=== PATIENT | male | born 1985 | race Caucasian/White ===

== ENCOUNTER → 2021-08-01 14:22 | Outpatient (BNVA) | payer OTHER, SELFPAY | PROVIDERS: PCP Family Medicine; Visit Provider Urology ==

== ENCOUNTER → 2022-02-01 14:19 | Outpatient (BNVA) | payer OTHER, SELFPAY | PROVIDERS: PCP Family Medicine; Visit Provider Urology | DX: Z13.89 Encounter for screening for other disorder (principal) | CPT/HCPCS: 55250 ==

== ENCOUNTER 2022-03-02 | Outpatient (REF) | payer OTHER, SELFPAY ==
[2022-03-02 11:26] LABS: Amphetamine Screen Urine Not Detected (Not Detect); Barbiturates, Urine Not Detected (Not Detect); Benzodiazepines Screen Urine Not Detected (Not Detect); Cannabinoid Screen Urine Not Detected (Not Detect); Cocaine Screen Urine Not Detected (Not Detect); Fentanyl, urine Not Detected (Not Detect); Opiate Screen Urine Not Detected (Not Detect); Phencyclidine Screen Urine Not Detected (Not Detect)
== END 2022-03-02 00:01 | disposition home or self-care (01) ==
LOC: HO.PHPLNP
PROVIDERS: Visit Provider Social Worker
DX: F10.20 Alcohol dependence, uncomplicated (principal)
CPT/HCPCS: 80307

== ENCOUNTER 2022-03-26 12:30 | Outpatient (RCR) | payer OTHER, SELFPAY ==
--- NOTE | 2022-03-01 10:50 | P.HPPSP_ITS ---
HPI Date of Service: 03/01/22 Chief Complaint: anxiety,depression Sources of Information: patient interviewed, chart reviewed and crisis/core team assessment reviewed HPI Narrative: Mr. Georges is a 36 year-old male with hx of MDD, alcohol use disorder who was referred by his PCP due to increase depression, low energy, poor sleep, hopeless. No SI/HI. Mr. Georges reports hx of using alcohol for more than 20 years almost daily. He reports hx of depression since he was in high school. He reports brief psychiatric treatment as a child for mostly attention deficit. He reports drinking almost daily for the past 20 years. 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 He reports poor sleep related to alcohol use. He reports most recently feeling very anxious, easily startle. He reports his has said to him that he seems more anxious and having panic attacks. He reports feeling slow physically and mentally. He reports trying to stop using alcohol for few weeks. He denies any withdrawal symptoms. He denies suicidal or homicidal ideation. However, he reports he finds very little amy in his life. When asked about his alcohol use and its impact on relationships, pt seems to minimize effects of alcohol use. He denies hx of visual or auditory hallucinations. He also denies s/s of hypomania or jyoti. Past Psychiatric History: Inpt: none OP: none Past trials: ritalin as child Medical Evaluation Reviewed: Yes [facility] Surgical History (Updated 03/02/22 @ 10:44 by Janie Clement RN) H/O vasectomy Meds/Allergies Meds Home Medications Medication Instructions Recorded Confirmed Type clonidine HCl 0.1 mg tablet 0.1 mg PO BID 03/02/22 03/02/22 History Allergies Allergies Allergy/AdvReac Type Severity Reaction Status Date / Time prunes Allergy Nausea and Verified 03/02/22 14:13 Vomiting Mental Status Exam Mental Status Exam Narrative: Appearance: MO, casually groomed, good hygiene in NAD Behavior:cooperative psychomotor: no agitation or retardation noted Speech:clear, normal rate/rhythm/volume, spontaneous Thought process:linear Thought content:no signs of psychosis or delusions, feeling hopeless, anhedonic Mood: anxious Affect: congruent SI:none HI:none VH/AH:none Delusions:none Insight/judgment:fair x 2. Memory/cog: alert, oriented x 3. grossly intact to conversational testing but not formally tested. Assessment & Plan Assessment & Plan (1) MDD (major depressive disorder), recurrent episode, moderate: Status: Acute Code(s): F33.1 - Major depressive disorder, recurrent, moderate (2) Alcohol use disorder, moderate, dependence: Status: Acute Code(s): F10.20 - Alcohol dependence, uncomplicated Plan Mr. Georges is a 36 year-old male with hx of depression, alcohol use who was referred by his PCP due to increase symptoms of anxiety, depressed mood, anhedonia, hopelessness. No SI/HI. Pt reports hx of alcohol use daily for 20 years. He reports he has not used in past 2 weeks, denies hx of alcohol withdrawal. We discussed risks, benefits and alternative treatment options. We discussed starting antidepressant but Mr. Georges ambivalent about it. We also discussed medications to decrease alcohol use/craving including naltrexon, campral or antibuse. Pt will like to wait before starting any medications. Patient educated on: diagnosis, medication risk/benefits and substance abuse Informed Consent: understands Reason for continued partial hosp. stay Substantial Risk for: inability to function Certification I certify that partial hospital treatment is medically necessary due to the symptoms and problems resulting from the patient's mental illness and the failure to treat the patient at the partial hospital level of care would likely result in the patient requiring inpatient psychiatric care which could not be prevented at a less intensive level of care.
--- NOTE | 2022-03-01 15:55 | PC.NURSE ---
Case was opened in treatment team.
[2022-03-02 10:49] VITALS: BMI 50.8
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
[2022-03-02 14:08] VITALS: BP 120/76; PULSE 72; TEMP 35.8
--- NOTE | 2022-03-06 14:52 | PC.NURSE ---
I met with Edgar to review treatment plan. We discussed schedule and aftercare plans. After discussing options, I agreed to refer pt to [facility] for individual therapy and medication management. Pt's mood was dysthymic and he used defensive humor at times. He reported a sense of hopelessness but no SI. He reported benefitting a great deal from the support of the group and from learning coping tools. Pt reported he has been abstinent from ETOH so far, and having some cravings. We discussed options for 12 step meetings, and for [facility] meetings, both of which he reported ambivalence about. We set at tentative discharge date for 03/15/22.
--- NOTE | 2022-03-09 09:59 | HO.PHPPROGNO ---
Subjective Subjective Date of Service: 03/08/22 Reason For Visit: anxiety,depression Interim History: Patient reports that he started Effexor 2 days ago. No side effects to report at this time. Lab work completed with PCP, reports liver enzymes elevated-results to be faxed to [facility]. Discussed role alcohol may be playing in affecting health. Patient minimizing alcohol use, but reflecting some on how alcohol does impact some areas of his life. Review of Systems Constitutional: Reports as per HPI Mental Status Exam Mental Status Exam Narrative: Appearance: MO, casually groomed, good hygiene in NAD Behavior:cooperative psychomotor: no agitation or retardation noted Speech:clear, normal rate/rhythm/volume, spontaneous Thought process:linear Thought content:no signs of psychosis or delusions, anhedonia Mood: anxious Affect: congruent SI:none HI:none VH/AH:none Delusions:none Insight/judgment:fair x 2. Memory/cog: alert, oriented x 3. grossly intact to conversational testing but not formally tested. Diagnostics Vital Signs (24Hr): BMI result Body Mass Index 50.8 Assessment & Plan Assessment & Plan (1) MDD (major depressive disorder), recurrent episode, moderate: Status: Acute Code(s): F33.1 - Major depressive disorder, recurrent, moderate Assessment and Plan: continue effexor at current dose follow up as needed (2) Alcohol use disorder, moderate, dependence: Status: Acute Code(s): F10.20 - Alcohol dependence, uncomplicated Assessment and Plan: risk reduction discussion Certification I certify that partial hospital treatment is medically necessary due to the symptoms and problems resulting from the patient's mental illness and the failure to treat the patient at the partial hospital level of care would likely result in the patient requiring inpatient psychiatric care which could not be prevented at a less intensive level of care. I spent minutes with the patient and/or on the patient floor today, greater than?50% of which was spent counseling/coordinating care. Discharge Plan Discharge Attending provider: Neo Ross Medications: No Action clonidine HCl 0.1 mg Tablet 0.1 mg PO BID venlafaxine [Effexor] 37.5 mg Tablet 37.5 mg PO DAILY Label Comments: Patient reports his prescriber Lawrence Mulligan added the above medication per Medication Update Form. 03/03/22
--- NOTE | 2022-03-15 13:09 | P.PNPSP_ITS ---
Subjective Subjective Date of Service: 03/15/22 Reason For Visit: anxiety,depression Medical Problems Affecting Mental Status: No Interim History: Taking clonidine, Effexor. Reports he missed them on Saturday, for got. Taking them consistently otherwise. Continues with dysphoric, anxious mood and affect. No SI. Today is patient's birthday, he states that he struggles on his birthday. Reports told him he had dissociative episode over weekend. Medication Compliance: Yes (Except for 1 day.) Side effects from medications: No Attending Groups: Yes Review of Systems Acute medical concerns: No Medical Review of Systems: unchanged Review of Systems Review of Systems Yes all other systems are reviewed and are negative Constitutional: Reports no additional constitutional complaints Mental Status Exam Mental Status Exam Patient Appearance: Appropriate Patient Orientation: Person, Place, Time and Situation Level of Consciousness: Appropriate Patient Behavior: Appropriate and Cooperative Mood Description: Depressed and Anxious Affect Description: Depressed and Anxious Patient Cognition Impaired: No Ability to Follow Directions: Good Speech Pattern: Clear, Appropriate and Coherent Memory Description: Intact Hallucinations: None Delusions: Not Present Perceptual Disturbances: Depersonalization (Reports episodes of dissociation) Thought Process: Intact Thought Content: positive for Intact Depressive Symptoms: Increased Anxiety, Difficulty Sleeping, Low Self Esteem and Difficulty Concentrating Judgement: Fair Diagnostics Vital Signs (24Hr): BMI result Body Mass Index 50.8 Assessment & Plan Assessment & Plan (1) MDD (major depressive disorder), recurrent episode, moderate: Status: Acute Code(s): F33.1 - Major depressive disorder, recurrent, moderate Assessment and Plan: Patient reports not yet noticing affect with Effexor. Discussed medication in detail, including risks and benefits, efficacy, etc.. Discussed increasing dose to 75 mg daily. He was in agreement with this. Patient states that he had a brother that had bipolar disorder, although this patient denies any symptoms of bipolar disorder in his past or present. He states that he took Ritalin as a child from ages [age], stopped taking it due to headaches and nightmares. He believes that he does have some type of difficulties with concentration. States that he also believes it could be related to dissociating at times. No SI/HI, no safety concerns. He states that he has a hard time on his birthday, which is today. Denies any SI at this time, but states that he has had SI in the past on his birthday. Denies any intent or plan to harm himself or others at this time. (2) Anxiety about health: Status: Acute Code(s): F41.8 - Other specified anxiety disorders (3) Alcohol use disorder, moderate, dependence: Status: Acute Code(s): F10.20 - Alcohol dependence, uncomplicated Assessment and Plan: Drink over weekend. States that he consumed less than normal amount, as he was not finding it satisfying. Plan 1. Continue with current [facility] plan of care. 2. Increase Effexor to 75 mg daily. 3. Follow-up as per protocol. Patient educated on: diagnosis, medication risk/benefits, substance abuse and therapeutic strategies Informed Consent: understands Reason for contiued partial hosp. stay Substantial Risk for: harm to self, inability to function and med/psych decompe nsation Certification I certify that partial hospital treatment is medically necessary due to the symptoms and problems resulting from the patient's mental illness and the failure to treat the patient at the partial hospital level of care would likely result in the patient requiring inpatient psychiatric care which could not be prevented at a less intensive level of care. I spent minutes with the patient and/or on the patient floor today, greater than?50% of which was spent counseling/coordinating care. Discharge Plan Discharge Attending provider: Neo Ross Additional Instructions: In-person assessment for individual therapy with therapist Tawanna Mayo at [facility], [address] [place] [address] on 03/20/22 at 10:30am (one hour appointment). Telehealth Psychiatric Evaluation for medication management with med provider Afshan Moran from [facility] on 04/03/22 at 2pm (one hour appointment). Telehealth follow-up appointment for medication management with med provider Afshan Moran from [facility] on 05/04/22 at 12:20pm (20 minute appointment). Medications: No Action clonidine HCl 0.1 mg Tablet 0.1 mg PO BID venlafaxine [Effexor] 37.5 mg Tablet 75 mg PO DAILY Label Comments: Patient reports his prescriber Lawrence Mulligan added the above medication per Medication Update Form. 03/03/22. Medication increased to 75 mg daily 03/15/22. Stand Alone Forms: Patient Portal Discharge page Patient Education: Depression (DC), Abuse of Alcohol (DC)
--- NOTE | 2022-03-22 12:49 | P.PNPSP_ITS ---
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 Some anxiety. No SI, no safety concerns. Feels current Effexor does is beginning to help lift mood, slowly. Finding PHP groups helpful. Medication Compliance: Yes Side effects from medications: Yes (Slight sexual side effects from Effexor.) Attending Groups: Yes Review of Systems Acute medical concerns: No Medical Review of Systems: unchanged Review of Systems Review of Systems Yes all other systems are reviewed and are negative Constitutional: Reports no additional constitutional complaints Mental Status Exam Mental Status Exam Narrative: NAD. No abnormal movements. Patient Appearance: Appropriate Patient Orientation: Person, Place, Time and Situation Level of Consciousness: Appropriate Patient Behavior: Appropriate and Cooperative Mood Description: Depressed (Reports 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) and Anxious Affect Description: Appropriate Patient Cognition Impaired: No Ability to Follow Directions: Excellent Speech Pattern: Clear, Appropriate and Coherent Memory Description: Intact Hallucinations: None Delusions: Not Present Thought Process: Intact Thought Content: positive for Intact Depressive Symptoms: Increased Anxiety and Low Self Esteem Judgement: Fair Diagnostics Vital Signs (24Hr): BMI result Body Mass Index 50.8 Assessment & Plan Assessment & Plan (1) MDD (major depressive disorder), recurrent episode, moderate: Status: Acute Code(s): F33.1 - Major depressive disorder, recurrent, moderate Assessment and Plan: 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 Some anxiety. No SI, no safety concerns. Feels current Effexor does is beginning to help lift mood, slowly. We discussed keeping medication regimen as it is at this time, as he is beginning to have some positive affect. He did state he has some slight sexual side effects, but that it is not bothersome at this time. He is scheduled to meet with a psychiatric provider in early March. He states that he will discuss any possible medication changes or adding Viagra etc. at that time with his new provider. Finding PHP groups helpful. Has decided he wants a new career, not sure which direction he will go in at this time. (2) Alcohol use disorder, moderate, dependence: Status: Acute Code(s): F10.20 - Alcohol dependence, uncomplicated Assessment and Plan: Did not report any concerns regarding alcohol use during this encounter. Plan 1. Continue with current [facility] plan of care. 2. Continue with current medication regimen as prescribed. 3. Follow-up as per protocol. Patient educated on: diagnosis, medication risk/benefits and therapeutic strategies Reason for contiued partial hosp. stay Substantial Risk for: inability to function Certification I certify that partial hospital treatment is medically necessary due to the symptoms and problems resulting from the patient's mental illness and the failure to treat the patient at the partial hospital level of care would likely result in the patient requiring inpatient psychiatric care which could not be prevented at a less intensive level of care. I spent minutes with the patient and/or on the patient floor today, greater than?50% of which was spent counseling/coordinating care. Discharge Plan Discharge Attending provider: Neo Ross Additional Instructions: In-person assessment for individual therapy with therapist Tawanna Mayo at [facility], [address] [place] [address] on 03/20/22 at 10:30am (one hour appointment). Telehealth Psychiatric Evaluation for medication management with med provider Afshan Moran from [facility] on 04/03/22 at 2pm (one hour appointment). Telehealth follow-up appointment for medication management with med provider Afshan Moran from [facility] on 05/04/22 at 12:20pm (20 minute appointment). Medications: No Action clonidine HCl 0.1 mg Tablet 0.1 mg PO BID venlafaxine [Effexor] 37.5 mg Tablet 75 mg PO DAILY Label Comments: Patient reports his prescriber Lawrence Mulligan added the above medication per Medication Update Form. 03/03/22. Medication increased to 75 mg daily 03/15/22. Stand Alone Forms: Patient Portal Discharge page Patient Education: Depression (DC), Abuse of Alcohol (DC)
--- NOTE | 2022-03-26 14:28 | P.PNPSP_ITS ---
Subjective Subjective Date of Service: 03/26/22 Reason For Visit: anxiety,depression Medical Problems Affecting Mental Status: No Interim History: Reports his mother in [place] on Saturday. Feeling overwhelmed with making arrangements, etc.. Reports he drank heavily this weekend. No SI, no safety concern at this time. Not interested in medication/dose change. Medication Compliance: Yes Side effects from medications: No Attending Groups: Yes Review of Systems Acute medical concerns: No Medical Review of Systems: unchanged Review of Systems Review of Systems Yes all other systems are reviewed and are negative Constitutional: Reports no additional constitutional complaints Mental Status Exam Mental Status Exam Narrative: NAD Patient Appearance: Appropriate Patient Orientation: Person, Place, Time and Situation Level of Consciousness: Appropriate Patient Behavior: Appropriate, Cooperative, Good Eye Contact and Crying (Tearful during encounter.) Mood Description: Depressed and Anxious Affect Description: Depressed and Anxious Patient Cognition Impaired: No Ability to Follow Directions: Good Speech Pattern: Clear, Appropriate, Coherent and Soft-Spoken Memory Description: Intact Hallucinations: None Delusions: Not Present Thought Process: Intact Thought Content: positive for Intact Depressive Symptoms: Increased Anxiety, Loss of Int. in Activity, Unhappiness, Increased Fatigue and Difficulty Concentrating Judgement: Good Diagnostics Vital Signs (24Hr): BMI result Body Mass Index 50.8 Assessment & Plan Assessment & Plan (1) MDD (major depressive disorder), recurrent episode, moderate: Status: Acute Code(s): F33.1 - Major depressive disorder, recurrent, moderate Assessment and Plan: Reports his mother in [place] on Saturday. Reports feeling numb, processing the loss. Has a brother that is diagnosed with bipolar disorder, patient mostly responsible for making arrangements. Feeling overwhelmed with making arrangements, etc.. Reports he drank heavily this weekend. Continues with conflicts with spouse. No SI, no safety concern at this time. Not interested in medication/dose change. (2) Alcohol use disorder, moderate, dependence: Status: Acute Code(s): F10.20 - Alcohol dependence, uncomplicated Plan 1. Patient to continue current medication doses at this time. 2. Patient to consider appointment at [facility] for treatment of alcohol use. 3. Patient to follow-up with outpatient providers going forward. Patient educated on: diagnosis, medication risk/benefits, substance abuse and therapeutic strategies Informed Consent: understands Reason for contiued partial hosp. stay Substantial Risk for: stable for discharge Certification I certify that partial hospital treatment is medically necessary due to the symptoms and problems resulting from the patient's mental illness and the failure to treat the patient at the partial hospital level of care would likely result in the patient requiring inpatient psychiatric care which could not be prevented at a less intensive level of care. I spent minutes with the patient and/or on the patient floor today, greater than?50% of which was spent counseling/coordinating care. Discharge Plan Discharge Attending provider: Neo Ross Additional Instructions: In-person individual therapy appointment with therapist Tawanna Mayo at [facility], [address] [place] [address] on 03/27/22 at 10:30am (one hour appointment). Telehealth Psychiatric Evaluation for medication management with med provider Afshan Moran from [facility] on 04/03/22 at 2pm (one hour appointment). Telehealth follow-up appointment for medication management with med provider Afshan Moran from [facility] on 05/04/22 at 12:20pm (20 minute appointment). Medications: No Action clonidine HCl 0.1 mg Tablet 0.1 mg PO BID venlafaxine [Effexor] 37.5 mg Tablet 75 mg PO DAILY Label Comments: Patient reports his prescriber Lawrence Mulligan added the above medication per Medication Update Form. 03/03/22. Medication increased to 75 mg daily 03/15/22. Stand Alone Forms: Patient Portal Discharge page Patient Education: Depression (DC), Abuse of Alcohol (DC)
== END 2022-03-26 23:59 | disposition home or self-care (01) ==
LOC: HO.PHPA 12:30
PROVIDERS: Visit Provider Psychiatry & Neurology Psychiatry
DX: F33.1 Major depressive disorder, recurrent, moderate (principal); F10.20 Alcohol dependence, uncomplicated
CPT/HCPCS: 90791; 90853

== ENCOUNTER → 2022-09-12 15:17 | Outpatient (BNVA) | payer OTHER, SELFPAY | PROVIDERS: PCP Family Medicine; Visit Provider Urology | DX: Z13.89 Encounter for screening for other disorder (principal) ==

== ENCOUNTER → 2022-12-14 10:45 | Outpatient (BNVA) | payer OTHER, SELFPAY | PROVIDERS: PCP Family Medicine; Visit Provider Urology ==

== ENCOUNTER → 2023-06-14 09:00 | Outpatient (BNV) | payer OTHER, SELFPAY | PROVIDERS: Visit Provider Psychiatry & Neurology Psychiatry | DX: F33.1 Major depressive disorder, recurrent, moderate (principal); F10.20 Alcohol dependence, uncomplicated | CPT/HCPCS: 90792; 99213 ==

== ENCOUNTER 2023-06-26 09:15 | Outpatient (RCR) | payer OTHER, SELFPAY ==
[2023-06-11 11:42] VITALS: BP 128/90; PULSE 68; TEMP 36.6
[2023-06-11 11:44] VITALS: BMI 48.1
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
--- NOTE | 2023-06-13 14:19 | HO.PHP ---
The client's case was reviewed and opened in treatment team.
--- NOTE | 2023-06-14 16:27 | HO.PHPPROGNO ---
Subjective Subjective Date of Service: 06/14/23 Reason For Visit: anxiety,depression Interim History: Patient seen for follow-up today by request, wanting to discuss alcohol use with his new medication. He reports anticipating a difficult weekend with spreading his mother's ashes over his father's graveplot. She says this was his mother's wishes but has delayed doing this as he was having trouble letting go . He feels this weekend the weather will be warmer and it just seems like the right time to do it. Upon inquiry about SI, he responds with jest I can neither confirm nor deny . When asked specifically about previous mentioned plan (20 yrs in the future), he endorses this is still his thought. He indicatesplan to use alcohol this weekend for anticipatory anxiety. We discuss option of utilizing a PRN for anxiety in lieu of alcohol, becuase there is less risk for overusing a medication which he needs to take as indicated, whereas there is no limit to the amount of alcohol he could access. He is open to the option of hydroxyzine. He was also encouraged to increase the ZOloft to one tablet (as he has been tolerating 1/2 tablet after an initial headache which has since resolved. Mental Status Exam Mental Status Exam Narrative: Alert, oriented, in no acute distress. Casually dressed.? Normal gait, no tics/tremors/dyskinesia, no psychomotor agitation or neurovegetative retardation. Calm, cooperative, forthcoming. Oddly related, disinhibited manner, gives provocative responses.? Variable eye contact. Mood is depressed. Affect constricted, anxious.? Speech is normal rate, low volume, low prosody. No latency or pressured speech. Thought process is linear, coherent without illogicality or FOI/OPHELIA. Thought content relevant to stressors, continues to endorse suicidal plan for 20 yrs in the future, but denies any thoughts of harming self or others presently. No gross evidence of psychosis. Cognition grossly intact. Sensorium clear. Insight fair but adequate. Judgment fair. Diagnostics Vital Signs (24Hr): BMI result Body Mass Index 48.1 Assessment & Plan Assessment & Plan (1) MDD (major depressive disorder), recurrent episode, moderate: Status: Acute Code(s): F33.1 - Major depressive disorder, recurrent, moderate (2) Alcohol use disorder, moderate, dependence: Status: Acute Code(s): F10.20 - Alcohol dependence, uncomplicated Plan Will start hydroxyzine 25 - 50 mg BID prn anxiety (may take an additional 25 mg dose for effect) continue with other regular medications Patient educated on: diagnosis, medication risk/benefits and substance abuse Informed Consent: understands Reason for contiued partial hosp. stay Substantial Risk for: harm to self, inability to function, rapid decompensation and med/psych decompensation Certification I certify that partial hospital treatment is medically necessary due to the symptoms and problems resulting from the patient's mental illness and the failure to treat the patient at the partial hospital level of care would likely result in the patient requiring inpatient psychiatric care which could not be prevented at a less intensive level of care. Total time managing care of this patient today 30____ minutes. Discharge Plan Discharge Attending provider: Margaret Vu Additional Instructions: Edgar has a scheduled appointment with his OP therapist, Diomedes Hughes on June 27, 2023 at 5 PM. Edgar has a scheduled appointment with his med provider, Trenton grimes [facility] on June 21, 2023 at 4:30 PM. Medications: New sertraline 50 mg tablet 50 mg PO DAILY Qty: 20 0RF Rx Instructions: take 1/2 tablet po daily for 6 days, then increase to one po tablet daily clonidine HCl 0.1 mg tablet 0.1 mg PO BID PRN (Reason: anxiety, sleep) Qty: 20 0RF hydroxyzine HCl 25 mg tablet 25 - 50 mg PO BID PRN (Reason: anxiety) Qty: 30 0RF Stand Alone Forms: Patient Portal Discharge page
[2023-06-21 10:44] VITALS: BP 136/91; PULSE 51
--- NOTE | 2023-06-21 21:56 | P.PNPSP_ITS ---
Subjective Subjective Date of Service: 06/21/23 Reason For Visit: anxiety,depression Interim History: Patient see for follow-up today. No acute issues or concerns Mood is still depressed, he is taking sertraline regularly at 50 mg daily. He has still not started on the hydroxyzine as he just picked it up today, but agrees to start on it for the anxiety, as he still is having thought of using alcohol to ease his stress. He asks generally about Bipolar disorder, anx wanders if he has this. He described his mood as up and down (feeling varying levels of depression, rather than alternate mood states. He reports some intrusive thoughts he does not want to share, but denies they are dangerous he also says he has impulses at times to say things, and is known to blurt out his thoughts impulsively, but says he tries to maintain a filter, epsecially when he was at work, because he was prone to putting his foot in his mouth . Many of the symptoms he describes sound related to temperment vs ADHD. He was encouraged to try to addressing some of these socialization issues in groups. He reports sleep is fair, appetite energy intact. Denies any hopelessness or SI or aggressive ideation at this time. We discuss movign up dose on the sertraline. He denies noticing any adverse e ffects. He is noted to have a history of erectile dysfunction. We discussed possibility of adding Wellbutrin on at some point to help w ADHD issues but also with potential ED on SSRIs, however his BP runs high (today 136/91). I suggest he makes an appointment with his PCP as he may need treatment for his HTN. He is taking clonidine but his HR is 51 this AM and was making him feel a little strange . Will continue to monitor. Medication Compliance: Yes Side effects from medications: No Attending Groups: Yes Review of Systems Acute medical concerns: No Mental Status Exam Mental Status Exam Narrative: Alert, oriented, in no acute distress. Casually dressed.? Normal gait, no tics/tremors/dyskinesia, no psychomotor agitation or neurovegetative retardation. Calm, cooperative, forthcoming. Oddly related, disinhibited manner, gives provocative responses.? Variable eye contact. Mood is depressed. Affect constricted, anxious.? Speech is normal rate, low volume, low prosody. No latency or pressured speech. Thought process is linear, coherent without illogicality or FOI/OPHELIA. Thought content relevant to stressors, continues to endorse suicidal plan for 20 yrs in the future, but denies any thoughts of harming self or others presently. No gross evidence of psychosis. Cognition grossly intact. Sensorium clear. Insight fair but adequate. Judgment fair. Diagnostics Vital Signs (24Hr): Vital Signs - 24 hr 06/21/23 10:44 Pulse Rate 51 Blood Pressure 136/91 H BMI result Body Mass Index 48.1 Assessment & Plan Assessment & Plan (1) MDD (major depressive disorder), recurrent episode, moderate: Status: Acute Code(s): F33.1 - Major depressive disorder, recurrent, moderate (2) Alcohol use disorder, moderate, dependence: Status: Acute Code(s): F10.20 - Alcohol dependence, uncomplicated Plan increase sertraline to 75 mg/day (will likely continue titration to 100 mg/d as tolerated) encouraged to start on hydroxyzine 25-75 mg PRN anxiety continue other medications Patient educated on: diagnosis, medication risk/benefits and substance abuse Informed Consent: understands Reason for contiued partial hosp. stay Substantial Risk for: inability to function, rapid decompensation and med/psych decompensation Certification I certify that partial hospital treatment is medically necessary due to the symptoms and problems resulting from the patient's mental illness and the failure to treat the patient at the partial hospital level of care would likely result in the patient requiring inpatient psychiatric care which could not be prevented at a less intensive level of care. Total time managing care of this patient today _30___ minutes. Discharge Plan Discharge Attending provider: Margaret Vu Additional Instructions: Edgar has a scheduled appointment with his OP therapist, Diomedes Hughes on June 27, 2023 at 5 PM. Edgar has a scheduled appointment with his med provider, Trenton Johnson through [facility] on June 21, 2023 at 4:30 PM. Medications: New clonidine HCl 0.1 mg tablet 0.1 mg PO BID PRN (Reason: anxiety, sleep) Qty: 20 0RF hydroxyzine HCl 25 mg tablet 25 - 50 mg PO BID PRN (Reason: anxiety) Qty: 30 0RF Changed sertraline 50 mg tablet 75 mg PO DAILY Qty: 45 0RF Rx Instructions: take 1/2 tablet po daily for 6 days, then increase to one po tablet daily Stand Alone Forms: Patient Portal Discharge page
--- NOTE | 2023-06-25 12:30 | HO.PHP ---
I spoke with Edgar and he will be here tomorrow for his last day.
== END 2023-06-26 23:59 | disposition home or self-care (01) ==
LOC: HO.PHPA 09:15
PROVIDERS: Visit Provider Psychiatry & Neurology Psychiatry
DX: F33.1 Major depressive disorder, recurrent, moderate (principal); F10.20 Alcohol dependence, uncomplicated; Z79.899 Other long term (current) drug therapy
CPT/HCPCS: 90791; 90853